=== PATIENT | female | born 1990 | race Caucasian/White ===

== ENCOUNTER 2021-07-15 13:18 | Outpatient (CLI) | payer OTHER | END 2021-07-15 13:19 | disposition home or self-care (01) | LOC: CSHRAD 13:18 | PROVIDERS: ATTEND Family Medicine | DX: S76.011A Strain of muscle, fascia and tendon of right hip, initial encounter (principal); Z97.5 Presence of (intrauterine) contraceptive device ==

== ENCOUNTER 2021-11-22 08:16 | Outpatient (CLI) | payer OTHER ==
[2021-11-22] MEDS ORDERED: Iopamidol 300 61% 100 ML VIAL FS ONE (10:22)
== END 2021-11-22 08:17 | disposition home or self-care (01) ==
LOC: CSHCT 08:16
PROVIDERS: ATTEND Family Medicine
DX: R10.2 Pelvic and perineal pain (principal); R10.30 Lower abdominal pain, unspecified; N83.202 Unspecified ovarian cyst, left side
CPT/HCPCS: 74177; Q9967